=== PATIENT | female | born 1985 | race Caucasian/White ===

== ENCOUNTER → 2018-06-08 17:37 | Observation (INO) ==
[2018-06-08 16:57] LABS: Basophils % 0.1 %; Hematocrit 34.6 % (35.3-44.9); Hemoglobin 11.3 g/dL (11.5-15.4); Immature Granulocytes % 0.6 % (0-4); Lymphocytes # 1.1 K/mcL (0.6-4.6); Lymphocytes % 7.7 %; Mean Corpuscular HGB Conc 32.7 g/dL (31.6-35.5); Mean Corpuscular Hemoglobin 31.1 pg (28.0-33.3); Mean Corpuscular Volume 95.3 fL (83.0-100.0); Mean Platelet Volume 10.1 fL (9.4-12.4); Monocytes # 0.5 K/mcL (0.0-1.3); Monocytes % 3.8 %; Neutrophils # 12.3 K/mcL (1.6-8.9); Platelet Count 176 K/mcL (140-400); Red Blood Count 3.63 M/mcL (3.82-4.97); Red Cell Distribution Width 12.8 % (11.5-14.5); Segmented Neutrophils % 87.8 %
--- NOTE | 2018-06-08 17:34 | OB/GYN Progress Note ---
Date of Encounter: 06/08/18 Time of Encounter: 18:05 - Assessment and Plan (1) 33 weeks gestation of Status: Acute (2) Constipation Status: Acute Soapsuds enema given with good effective results Recommend to patient Colace twice daily, milk of magnesia every other day, continue MiraLAX Red blood noted on finger when doing digital rectal exam, hemoglobin has improved over last CBC Discharge patient home with rectal bleeding precautions and labor precautions. Patient verbalizes understanding Plan of care discussed with Dr. Connor Qualifiers: Constipation type: unspecified constipation type Qualified Code(s): K59.00 - Constipation, unspecified Subjective - Subjective Interval history: presents to triage with complaints of rectal bleeding, bearing down to have bowel movement patient would wipe and noticed the red mucousy discharge. Pt has had a history of constipation this , and last had a bowel movement on , but states it was very small, has had to be dis-impacted earlier this and takes daily Miralax. Reports good movement, denies contraction, vaginal bleeding or leaking of fluid. Antepartum ROS: movement normal, no loss of fluid, no vaginal bleeding, no contractions Objective - Exam FHR: auscultation normal FHR comments: Baseline 150 Abdomen: Present: soft, gravid Cervical dilation: Fingertip/thick/high - Labs Labs: Abnormal lab results WBC 14.0 K/mcL (4.3-11.1) H 06/08/18 16:18 RBC 3.63 M/mcL (3.82-4.97) L 06/08/18 16:18 Hgb 11.3 g/dL (11.5-15.4) L 06/08/18 16:18 Hct 34.6 % (35.3-44.9) L 06/08/18 16:18 12.3 K/mcL (1.6-8.9) H 06/08/18 16:18
== END | disposition home or self-care (01) ==
LOC: 1NENULAB
PROVIDERS: ADMIT Advanced Practice Midwife; ATTEND Advanced Practice Midwife

== ENCOUNTER → 2018-06-29 13:53 | Observation (INO) ==
[2018-06-29 11:54] LABS: Bilirubin,Urine Negative (Negative); Blood,Urine Negative (Negative); Clarity,Urine Clear (Clear); Color,Urine Yellow (Yellow); Glucose,Urine (UA) Normal (Normal); Ketones,Urine Negative (Negative); Leukocyte Esterase,Urine Small (Negative); Nitrite,Urine Negative (Negative); Protein,Urine Negative (Neg-Trace); Specific Gravity,Urine 1.011 (1.010-1.025); Urobilinogen,Urine Normal (Normal)
[2018-06-29 11:56] LABS: Bacteria,Urine None Seen per hpf (None-Few); Hyaline Casts,Urine None Seen per lpf (None-Few); RBC,Urine 0-3 per hpf (0-3); Squamous Epithelial Cell,Urine Many per lpf (None-Few)
[2018-06-29 12:02] LABS: Amphetamine Screen,Urine Negative ng/mL (Cutoff=1000); Barbiturate Screen,Urine Negative ng/mL (Cutoff=200); Benzodiazepines Screen,Urine Negative ng/mL (Cutoff=200); Cannabinoid Screen,Urine Negative ng/mL (Cutoff = 50); Cocaine Screen,Urine Negative ng/mL (Cutoff= 300); Opiate Screen,Urine Negative ng/mL (Cutoff=300); Phencyclidine Screen,Urine Negative ng/mL (Cutoff=25)
--- NOTE | 2018-06-29 12:22 | OB/GYN Progress Note ---
Date of Encounter: 06/29/18 Time of Encounter: 12:22 - Assessment and Plan (1) 36 weeks gestation of Current Visit: Yes Status: Acute (2) Amniotic fluid leaking Current Visit: Yes Status: Acute SSE with negative pooling and negative ferning. Suspect normal discharge vs leaking urine. (3) Tachycardia Current Visit: Yes Status: Acute Stat EKG ordered. Pulse ranging 90-120's. (4) NST (non-stress test) reactive Current Visit: No Status: Acute Subjective - Subjective Interval history: 33 year-old presenting at 36 weeks for leaking fluid. She reports that when she went to give a urine specimen at her PN visit today she noticed that her underwear were wet. She feels like she has continued to leak very small amounts of fluid. She is unsure if this is urine. She has been moving and she feels that she has probably over done herself. She reports some mild low back pain as well. No contractions or bleeding. Good FM. SHe also reports intermittent episodes of tachycardia with associated shortness of breath for the last few weeks. She denies chest pain. SHe has been seen for this but is supposed to have an outpatient EKG that she has not had time to get done. Antepartum ROS: loss of fluid, movement normal, no vaginal bleeding, no contractions Objective - Vital Signs Vital Signs: Intake and Output 06/28/18 06/29/18 06/29/18 23:59 07:59 15:59 Other: Weight 67.6 kg Patient Weight 06/29/18 23:59 Weight 67.6 kg - Exam FHR: category 1 FHR comments: 135 Reactive NST Abdomen: Present: soft, gravid. Absent: tenderness Uterus: Absent: tenderness Cervical dilation: 1/thick/high Comments: SSE with negative pooling, equivocal nitrazine, negative fern. - Labs Labs: Abnormal lab results Ur Leukocyte Esterase Small (Negative) H 06/29/18 11:30 3-5 per hpf (0-3) H 06/29/18 11:30 Ur Squamous Epith Cells Many per lpf (None-Few) H 06/29/18 11:30 Ur Culture Indicated? YES (NO) A 06/29/18 11:30
--- NOTE | 2018-06-29 16:34 | Electrocardiograph Report ---
[address] [address] Test Date: 2018-06-29 Pat Name: Saira Romo Department: 101 Room: [facility] Gender: F Tie Presser: : 1985 Requested By: Jannie Serna Order Number: [id number] Reading MD: Jake Gutierrez Measurements Intervals [place] Rate: 77 P: 46 CA: 121 QRS: 0 QRSD: 77 T: 4 QT: 354 QTc: 386 Interpretive Statements SINUS RHYTHM Electronically Signed On 06-29-2018 16:33:26 EDT by Jake Gutierrez
== END | disposition home or self-care (01) ==
LOC: 1NENULAB
PROVIDERS: ADMIT Registered Nurse; ATTEND Registered Nurse

== ENCOUNTER → 2018-07-19 16:19 | Observation (INO) ==
[2018-07-19 14:43] LABS: Amphetamine Screen,Urine Negative ng/mL (Cutoff=1000); Barbiturate Screen,Urine Negative ng/mL (Cutoff=200); Benzodiazepines Screen,Urine Negative ng/mL (Cutoff=200); Cannabinoid Screen,Urine Negative ng/mL (Cutoff = 50); Cocaine Screen,Urine Negative ng/mL (Cutoff= 300); Opiate Screen,Urine Negative ng/mL (Cutoff=300); Phencyclidine Screen,Urine Negative ng/mL (Cutoff=25)
[2018-07-19 15:03] LABS: Bilirubin,Urine Negative (Negative); Blood,Urine Negative (Negative); Clarity,Urine Clear (Clear); Color,Urine Yellow (Yellow); Glucose,Urine (UA) Normal (Normal); Ketones,Urine Negative (Negative); Leukocyte Esterase,Urine Small (Negative); Nitrite,Urine Negative (Negative); PH,Urine 7.5 pH Units (5.0-8.0); Protein,Urine Negative (Neg-Trace); Specific Gravity,Urine 1.012 (1.010-1.025); Urobilinogen,Urine Normal (Normal)
[2018-07-19 15:04] LABS: Bacteria,Urine None Seen per hpf (None-Few); Hyaline Casts,Urine None Seen per lpf (None-Few); Squamous Epithelial Cell,Urine Many per lpf (None-Few)
--- NOTE | 2018-07-19 16:17 | Discharge Summary ---
Date of Encounter: 07/19/18 Time of Encounter: 16:14 - Discharge Diagnosis (1) 38 weeks gestation of Priority: Primary Status: Acute Comments: Follow up with Dr. Castillo as scheduled tomorrow Labor parameters discussed Discharge home (2) Low back pain during in third trimester Priority: Secondary Status: Acute Comments: UA negative - cx pending Monitored for 2 hours with no cervical change advised to use heat for pain relief - Discharge Medications Prescriptions: No Action Vitamin Tablet 1 mg PO DAILY FLUoxetine HCl [PROzac] 20 mg PO DAILY Ondansetron HCl [Zofran] 1 tab PO PRN PRN PRN Reason: nausea Acetaminophen [Tylenol] 1,000 mg PO PRN PRN PRN Reason: Pain Home Medications: Vitamin Tablet 1 mg PO DAILY 06/29/18 [History] Acetaminophen [Tylenol] 1,000 mg PO PRN PRN 07/19/18 [History] FLUoxetine HCl [PROzac] 20 mg PO DAILY 07/19/18 [History] Ondansetron HCl [Zofran] 1 tab PO PRN PRN 07/19/18 [History] Allergies/Adverse Reactions: Allergy/AdvReac Type Severity Reaction Status Date / Time No Known Allergies Allergy Verified 12/03/15 11:34 Data Procedures and tests throughout hospitalization: Laboratory Tests 07/19/18 07/19/18 14:00 14:45 Urine Color Yellow Urine Clarity Clear Urine pH 7.5 Ur Specific [place] 1.012 Urine Protein Negative Urine Glucose (UA) Normal Urine Ketones Negative Urine Blood Negative Urine Nitrite Negative Urine Bilirubin Negative Urine Urobilinogen Normal Ur Leukocyte Esterase Small H Urine Microscopic RBC 3-5 H Urine Microscopic WBC 3-5 H Ur Squamous Epith Cells Many H Urine Bacteria None Seen Hyaline Casts None Seen Ur Culture Indicated? YES A Urine Opiates Screen Negative Ur Barbiturates Screen Negative Ur Phencyclidine Scrn Negative Ur Amphetamines Screen Negative U Benzodiazepines Scrn Negative Urine Cocaine Screen Negative U Marijuana (THC) Screen Negative Ur Drug Screen Interp See Below Labs on day of discharge: Labs from last 24 hours 07/19/18 07/19/18 14:45 14:00 Urine Color Yellow Urine Clarity Clear Urine pH 7.5 Ur Specific [place] 1.012 Urine Protein Negative Urine Glucose (UA) Normal Urine Ketones Negative Urine Blood Negative Urine Nitrite Negative Urine Bilirubin Negative Urine Urobilinogen Normal Ur Leukocyte Esterase Small H Urine Microscopic RBC 3-5 H Urine Microscopic WBC 3-5 H Ur Squamous Epith Cells Many H Urine Bacteria None Seen Hyaline Casts None Seen Ur Culture Indicated? YES A Urine Opiates Screen Negative Ur Barbiturates Screen Negative Ur Phencyclidine Scrn Negative Ur Amphetamines Screen Negative U Benzodiazepines Scrn Negative Urine Cocaine Screen Negative U Marijuana (THC) Screen Negative Ur Drug Screen Interp See Below Date of admission: 07/19/18 13:27 Primary care physician: Ana Jesus DO Discharging clinician: Patricia Stephens Anticipated date of discharge: 07/19/18 - Patient Status Disposition: Home, Self-Care Condition: Good Functional capacity at discharge: independent ambulation Overall status at discharge: patient is progressing back to baseline - Discharge Instructions Follow Up With: Ana Jesus DO [Primary Care Provider] - Anthony Castillo MD [Partnered Physician] - Additional Instructions: LABOR AND DELIVERY DISCHARGE INSTRUCTIONS Signs and Symptoms to be Reported to your Doctor Immediately: * Sudden gush, continuous or intermittent lead of fluid from vagina (note the time of gush and color of fluid) * Onset of bright red vaginal bleeding with or without pain (if you had a vaginal exam during this visit you may notice some dark red spotting. This is normal.) * Contractions that are 5 minutes apart (from the beginning of one contraction to the beginning of the next) and last 45-60 seonds; contractions that you can no longer walk, talk or laugh through. * A change in the baby's activity. This could be an increase or decrease in activity. * Severe headache which does not go away with tylenol. * Sudden swelling in the face, hands, arms and/or legs. * Upper abdominal pain - sometimes associated with heartburn or nausea and is not relieved by Maalox, Mylanta or Tums. * Kick Counts __ One hour after a meal, lay down on one side in a quiet place. Count the number of time the baby moves during an hour. 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 She states that sometimes she does have tightening in the front but that it is manageable. She was monitored on the unit for 2 hours with no cervical change. SVE was 1/thick/high. UA was negative however flagged for culture and cervical culture is pending. She is to see Dr. Castillo in the office tomorrow and I advised her to keep this appointment. She was discharged home in stable condition. Time Attestation: Total time spent providing and/or coordinating discharge services: Time Spent: Less than 30 minutes Exam - Constitutional General appearance IM: A&O X 3, pleasant, no acute distress, answers questions appropriately - Respiratory Respiratory exam: Present: CTAB - Cardiovascular Cardiovascular exam IM: Present: RRR, +S1, +S2 - GI/Abdominal GI/Abdominal exam IM: normal bowel sounds, no peritoneal signs - Uterine Tone: Firm - Extremities Exam Extremities exam IM: Present: normal capillary refill, normal inspection, radial pulses palpable and symmetrical - Neurological Exam Neurological exam: alert, normal gait, oriented X3, strengths equal and symetr throughout - VTE Reasons for not Prescribing Prophylaxis: Treatment not Indicated - Low risk for VTE
== END | disposition home or self-care (01) ==
LOC: 1NENULAB
PROVIDERS: ADMIT Advanced Practice Midwife; ATTEND Advanced Practice Midwife